=== PATIENT | male | born 1960 | race Two or more races ===

== ENCOUNTER 2016-09-22 13:46 | Observation (INO) | payer BC, OTHER ==
[~2016-09-22] VITALS: Ht 157.5 cm; Wt 94.1 kg
[2016-09-22] MEDS ORDERED: NS 500 ML IV ONE (14:15)
[2016-09-22] MEDS ORDERED: methylPREDNISolone INJ 125 MG/2 ML VIAL (J2930) IV ONE (14:15)
[2016-09-22] MEDS ORDERED: IPRATROPIUM 0.5MG/ALBUTEROL 2.5MG INH SOL UD 3ML (DUONEB)(J7620) NEB ONE (14:15)
[2016-09-22 14:18] LABS: VENOUS BASE EXCESS -4.5 (-2.0-2.0); VENOUS O2 SATURATION 94.4 % (60.0-80.0); VENOUS PARTIAL PRESSURE CO2 33.5 mmHg (38.0-50.0); VENOUS PARTIAL PRESSURE O2 81.9 mmHg (30.0-50.0); VENOUS STANDARD HCO3 20.7 MEQ/L; VENOUS TOTAL CO2 20.5 MEQ/L (24.0-28.0)
[2016-09-22 14:22] LABS: BASO % 0.1 % (0.0-1.0); EOS # 0.1 K/mm3 (0.0-0.50); EOS % 0.7 % (0.0-3.0); LARGE UNSTAINED CELL # 0.1 K/mm3 (0.0-0.4); LARGE UNSTAINED CELL % 0.6 % (0.0-4.0); LYMPH # 0.9 K/mm3 (1.5-4.5); LYMPH % 4.9 % (24.0-44.0); MEAN CORPUSCULAR HEMOGLOBIN 29.6 pg (27.0-33.0); MEAN CORPUSCULAR HGB CONC 32.6 g/dl (32.0-36.5); MEAN CORPUSCULAR VOLUME 90.8 fl (80.0-96.0); MONO # 0.4 K/mm3 (0.0-0.8); MONO % 2.1 % (0.0-5.0); NEUTROPHILS # 15.2 K/mm3 (1.8-7.7); NEUTROPHILS % 91.5 % (36.0-66.0); PLATELET COUNT, AUTOMATED 441 k/mm3 (150-450); RED CELL DISTRIBUTION WIDTH 12.2 % (11.5-14.5); WHITE BLOOD COUNT 16.6 K/mm3 (4.0-10.0)
[2016-09-22 14:40] LABS: ALBUMIN 4.2 GM/DL (3.2-5.2); ALBUMIN/GLOBULIN RATIO 0.91 (1.00-1.93); BILIRUBIN,DIRECT 0.1 MG/DL (0.0-0.2); BILIRUBIN,TOTAL 0.7 MG/DL (0.2-1.0); CALCIUM LEVEL 10.8 MG/DL (8.5-10.1); CREATININE FOR GFR 1.69 MG/DL (0.70-1.30); GLOMERULAR FILTRATION RATE 45.1 (>56); TOTAL PROTEIN 8.8 GM/DL (6.4-8.2)
--- NOTE | 2016-09-22 14:40 | REP ---
Chest one-view HISTORY: Dyspnea Comparison: None The lungs are clear. The heart is normal in size. The pulmonary vasculature is normal in appearance. Impression: No acute disease. Signed by Jeb Kaur MD 09/22/2016 02:31 P
[2016-09-22 14:46] LABS: POTASSIUM SERUM 5.3 MEQ/L (3.5-5.1)
[2016-09-22] MEDS ORDERED: INSULIN HUMAN REGULAR 100 UNITS in NS 99 ML IV SCH ×3 (14:55→17:21)
[2016-09-22] MEDS ORDERED: INSULIN IV RATE CHANGE DOCUMENTATION ML/HR XX SCH (15:00)
[2016-09-22] MEDS ORDERED: GUAISYP5 PO (15:14)
[2016-09-22] MEDS ORDERED: PROAAER10 INH (15:14)
[2016-09-22] MEDS ORDERED: PEPT262S PO (15:14)
--- NOTE | 2016-09-22 15:57 | REP ---
CT CHEST WITHOUT CONTRAST: HISTORY: Shortness of breath. The lungs are clear. There is no pleural effusion. Small lymph nodes less than 1 cm in size are present in the mediastinum. Atherosclerotic calcification is present in the thoracic aorta. The heart is normal in size. Degenerative change is present in the thoracic spine. A 6.4 cm cyst is present in the left kidney. IMPRESSION: 1. There is no infiltrate, pleural effusion or mass. 2. 6.4 cm left renal cyst. Signed by Jeb Kaur MD 09/22/2016 03:59 P
[2016-09-22] MEDS ORDERED: NS 1,000 ML IV ONE ×3 (16:15→17:45)
[2016-09-22] MEDS ORDERED: ACETAMINOPHEN TAB 650MG DOSE (2X325MG) PO PRN (17:30)
[2016-09-22] MEDS ORDERED: ONDANSETRON 4MG/2ML VIAL (J2405) IV PRN (17:30)
[2016-09-22] MEDS ORDERED: BISACODYL 5 MG TAB PO PRN (17:30)
[2016-09-22] MEDS ORDERED: IPRATROPIUM 0.5MG/ALBUTEROL 2.5MG INH SOL UD 3ML (DUONEB)(J7620) NEB PRN (17:45)
[2016-09-22] MEDS ORDERED: SODIUM CHLORIDE 0.9% 1000 ML IV ONE (17:45)
[2016-09-22 19:59] LABS: ANION GAP 10 MEQ/L (8-16); BLOOD UREA NITROGEN 34 MG/DL (7-18); CALCIUM LEVEL 9.8 MG/DL (8.5-10.1); CARBON DIOXIDE LEVEL 24 MEQ/L (21-32); CHLORIDE LEVEL 98 MEQ/L (98-107); CREATININE FOR GFR 1.56 MG/DL (0.70-1.30); GLOMERULAR FILTRATION RATE 49.4 (>56); POTASSIUM SERUM 4.5 MEQ/L (3.5-5.1); SODIUM LEVEL 132 MEQ/L (136-145)
[2016-09-22 20:02] LABS: GLUCOSE, FASTING 485 MG/DL (70-105)
[2016-09-22] MEDS: KCL 20MEQ in NS 1000ML 1,000 ML IV SCH (21:18)
[2016-09-22] MEDS: HEPARIN SOD (PORCINE) 5000 UNITS/ML VIAL SC SCH (21:18)
--- NOTE | 2016-09-22 21:40 | HPE ---
DATE OF ADMISSION: 09/22/2016 PRIMARY CARE PHYSICIAN: Patient was following with Dr. Springer; however, the patient has not seen Dr. Springer for the past 10 years. CHIEF COMPLAINT: Increase shortness of breath as well as not being able to tolerate by mouth and being fatigued and more tired and being thirsty for the past 2 weeks HISTORY OF THE PRESENT ILLNESS: Mr. Godoy is a 56-year-old male who came to the emergency room due to experiencing shortness of breath, as well as being thirsty and not being able to hold anything down. The patient expressed that he had been seen by Dr. Springer 10 years ago; however, the patient has not been seen by primary care for the past 10 years. 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 He works for 4 weeks in [facility] and came home for 1 week. The patient expressed that 2 weeks ago, he noticed that he is more thirsty than usual. The patient also expressed that he could not hold anything down; however, he tried to keep himself hydrated. He also noticed that his urination has increased. He said that he has not been diagnosed with diabetes; however, he has a strong family history of diabetes. The patient also expressed that he has been noticing having shortness of breath for past 2 weeks especially with ambulation. The patient has been smoking since age 23, about a pack a day. However, the patient has not been diagnosed with chronic obstructive pulmonary disease (COPD). Patient has random chronic cough however it has increased for the past 2 weeks with chest discomfort. He has been feeling hungry; however, patient expressed that about 30 minutes to 1 hour after eating, he started having nausea and vomiting. The patient denies diarrhea. The patient denies fevers, chills or night sweats. The patient also denies syncope or seizure-type activities. However, the patient expressed that he has been having lightheadedness and dizziness. The patient came today due to increase of shortness of breath as well as not being able to tolerate by mouth and being fatigued and more tired for the past 2 weeks. ALLERGIES: No known allergies. PAST MEDICAL HISTORY No known past medical history. PAST SURGICAL HISTORY: Patient had the back surgery on L4-L5 due to an accident. HOME MEDICATIONS: - ProAir HFA two puff inhaler four times a day as needed for shortness of breath - Pepto Bismol 30 mL by mouth as needed for diarrhea - guaifenesin DM 100-10, 10 mL by mouth as needed for cough SOCIAL HISTORY: The patient lives with his son. The patient works in [place] for 4 weeks and every 5th week the patient comes home for a visit. The patient smokes one pack a day since he was 23 years old. The patient drinks alcohol occasionally; however, the patient expressed that when he is in [place] he does not drink alcohol because he is not allowed to do that. The patient denies illicit drug use. The patient has one son who is healthy. The patient has traveled to many different countries, including [facility] and [place] [facility]. FAMILY HISTORY: The patient has four brothers and two sisters; however, the patient does not know about their health and he feels that they are healthy. The patient's father at age 89. The patient's mother has diabetes and she is 89 years old. REVIEW OF SYSTEMS: General: The patient denies fever, chills, night sweats, weight loss, weight gain. HEENT: The patient expressed that he has been having lightheadedness and dizziness with standing up from a sitting position for the past 2 weeks. However , the patient denies acute vision or hearing changes. The patient denies headache. The patient denies problem with chewing food or sinusitis. Neck: The patient denies lumps, bumps, or decreased range of motion of his neck. Heart: The patient denies chest pain, palpitations, racing or skipping heartbeat. Lungs: The patient has been having a cough, which has increased for the past 2 weeks. The patient sometimes experiences a productive cough, which has been increased. However, the patient expressed that it is a dry cough. The patient denies wheezing. Abdomen: The patient denies abdominal pain; however, the patient expressed that he has been having nausea and vomiting about 30 minutes to 1 hour after eating or drinking food or fluid. The patient denies diarrhea, constipation, melena, hematochezia or hemoptysis. Neurologic: The patient denies a history of transient ischemic attack (TIA), cerebrovascular accident or seizure-type activity. PHYSICAL EXAMINATION: Vital signs: Temperature 99.5, pulse 127, respiratory rate 18, blood pressure 173/108, pulse oximetry 94% on room air. General Appearance: The patient was lying in bed in no acute distress. The patient was awake, alert and oriented to time, place and person. HEENT: Normocephalic, atraumatic. Pupils are equal and reactive to light. Oral mucosa is moist. Neck: Soft, supple. No lymphadenopathy. No thyromegaly. No jugular venous distention (JVD). Heart: Regular rate and rhythm. Normal S1, S2. No murmur, rub or gallop was noted. Lungs: The patient has scattered rhonchi as well as fine exhale wheezing. Abdomen: Soft, nontender. Positive bowel sounds in all quadrants. Extremities: No lower extremity edema, +2 pulses in both lower extremities. The patient has decreased range of motion of his lower extremities. The patient expressed that this is secondary to his weakness. Neurologic: Cranial nerves II-XII was intact. No focal deficiencies. LABORATORY DATA: Sodium 128, potassium 5.3, chloride 89, carbon dioxide 21, anion gap 18, BUN 89, creatinine 169, glomerular filtration rate 45.1, fasting glucose 913, calcium 10.8, total bilirubin 0.7 and direct bilirubin 0.1. AST 18, ALT 68, alkaline phosphatase 147, total protein 8.8, albumin 4.2. White blood cells 16.6 , red blood cells 5.77, hemoglobin 17.1, hematocrit 52.4, MCV 90.8, MCH 29.6, MCHC 32.6, RDW 12.2, platelet count 441, neutrophil percentage 91.5, lymphocyte percentage 4.9, monocyte percentage 2.1, eosinophil percentage 0.7, basophil percentage 0.1, leukocyte percentage 0.2. Blood culture is pending. Chest x-ray shows no acute disease. CT of the chest indicated no infiltrate, pleural effusion or mass. ASSESSMENT AND PLAN: 1. Diabetic ketoacidosis. At this time, we have made the patient nothing by mouth. We have started the patient on intravenous (IV) fluid with potassium as well as insulin drip. Also, there is a possibility of infection. We have ordered blood culture as well as urine culture and urinalysis (UA), result is pending at this time. Also, we will check basic metabolic panel (BMP) every 4 hours for following the gap. However, at this time, the patient's anion gap is open. We will continue monitoring the patient. The patient will be admitted to the intensive care unit (ICU). 2. Hyponatremia. This is possibly hypovolemic hyponatremia secondary to diabetic ketoacidosis as well as abnormal renal function. At this point, the patient is on IV fluid. We will continue monitoring the patient's sodium level. 3. Hyperkalemia. This is secondary to DKA. The patient has been started on an insulin drip. However, we also will start the patient on IV fluid with sodium. We will continue monitoring the patient's BMP every 4 hours. 4. Diabetes. The patient has not been diagnosed with diabetes. We have ordered hemoglobin A1c, which indicated high level (11.7). At this time, the patient is nothing by mouth (n.p.o.). The patient is on an insulin drip. 5. Leukocytosis. The patient has elevated white blood cells. This is possibly secondary to infection versus DKA. We have ordered blood culture as well as urine culture and UA. Result is pending at this time. We have not started any antibiotic at this time due to unknown etiology. We will continue monitoring the patient for any abnormal symptoms. 6. Abnormal renal function. We do not have the baseline for the renal function. I am assuming this is acute kidney injury secondary to dehydration caused by DKA. The patient is on IV fluid. We will revaluate his renal function tomorrow. 7. Deep vein thrombosis (DVT) prophylaxis. The patient is on heparin 5000 units every 8 hours subcutaneously 8. Dyspnea. Due to abnormal renal function, CT angio cannot be perform to rule out pulmonary embolism (PE) . However, we have ordered a V/Q scan which we will perform tomorrow. Patient on breathing treatment. 9. Tobacco abuse. The patient is on nicotine patch. MTDD
[2016-09-22] MEDS: INSULIN IV RATE CHANGE DOCUMENTATION ML/HR XX SCH (22:00)
[2016-09-22] MEDS: IPRATROPIUM 0.5MG/ALBUTEROL 2.5MG INH SOL UD 3ML (DUONEB)(J7620) NEB SCH (22:27)
[2016-09-22 23:25] LABS: ANION GAP 8 MEQ/L (8-16); BLOOD UREA NITROGEN 27 MG/DL (7-18); CALCIUM LEVEL 8.7 MG/DL (8.5-10.1); CARBON DIOXIDE LEVEL 24 MEQ/L (21-32); CHLORIDE LEVEL 103 MEQ/L (98-107); GLOMERULAR FILTRATION RATE > 60.0 (>56); GLUCOSE, FASTING 390 MG/DL (70-105); POTASSIUM SERUM 4.2 MEQ/L (3.5-5.1); SODIUM LEVEL 135 MEQ/L (136-145)
[2016-09-23] VITALS (7 sets, daily range): BP systolic 127–179; BP diastolic 81–100
[2016-09-23] MEDS: IPRATROPIUM 0.5MG/ALBUTEROL 2.5MG INH SOL UD 3ML (DUONEB)(J7620) NEB SCH ×4 (02:26→21:21)
[2016-09-23 02:46] LABS: BASO % 0.1 % (0.0-1.0); EOS # 0.1 K/mm3 (0.0-0.50); EOS % 0.8 % (0.0-3.0); LARGE UNSTAINED CELL # 0.1 K/mm3 (0.0-0.4); LARGE UNSTAINED CELL % 0.6 % (0.0-4.0); LYMPH # 1.4 K/mm3 (1.5-4.5); LYMPH % 9.3 % (24.0-44.0); MEAN CORPUSCULAR HEMOGLOBIN 29.8 pg (27.0-33.0); MEAN CORPUSCULAR HGB CONC 33.7 g/dl (32.0-36.5); MEAN CORPUSCULAR VOLUME 88.4 fl (80.0-96.0); MONO # 0.3 K/mm3 (0.0-0.8); MONO % 2.3 % (0.0-5.0); NEUTROPHILS # 12.3 K/mm3 (1.8-7.7); NEUTROPHILS % 86.9 % (36.0-66.0); PLATELET COUNT, AUTOMATED 347 k/mm3 (150-450); RED CELL DISTRIBUTION WIDTH 12.3 % (11.5-14.5); WHITE BLOOD COUNT 14.2 K/mm3 (4.0-10.0)
[2016-09-23 03:14] LABS: ALBUMIN 3.3 GM/DL (3.2-5.2); ALBUMIN/GLOBULIN RATIO 0.79 (1.00-1.93); ALKALINE PHOSPHATASE 106 U/L (45-117); ALT/SGPT 48 U/L (12-78); ANION GAP 9 MEQ/L (8-16); AST/SGOT 14 U/L (15-37); BILIRUBIN,TOTAL 0.4 MG/DL (0.2-1.0); BLOOD UREA NITROGEN 24 MG/DL (7-18); CALCIUM LEVEL 8.5 MG/DL (8.5-10.1); CARBON DIOXIDE LEVEL 24 MEQ/L (21-32); CHLORIDE LEVEL 106 MEQ/L (98-107); CREATININE FOR GFR 1.07 MG/DL (0.70-1.30); GLOMERULAR FILTRATION RATE > 60.0 (>56); GLUCOSE, FASTING 340 MG/DL (70-105); MAGNESIUM LEVEL 2.4 MG/DL (1.8-2.4); POTASSIUM SERUM 4.2 MEQ/L (3.5-5.1); SODIUM LEVEL 139 MEQ/L (136-145); TOTAL PROTEIN 7.5 GM/DL (6.4-8.2)
[2016-09-23] MEDS: INSULIN IV RATE CHANGE DOCUMENTATION ML/HR XX SCH (06:05)
[2016-09-23] MEDS: KCL 20MEQ in NS 1000ML 1,000 ML IV SCH (06:09)
[2016-09-23] MEDS: HEPARIN SOD (PORCINE) 5000 UNITS/ML VIAL SC SCH ×3 (06:09→21:07)
[2016-09-23] MEDS ORDERED: GLUCOSE 4 GM CHEW TABLET PO PRN (07:00)
[2016-09-23] MEDS ORDERED: GLUCAGON FOR INJ 1 MG VIAL (J1610) SC PRN (07:00)
[2016-09-23] MEDS ORDERED: DEXTROSE 50% 50 ML SYRINGE IV PRN (07:00)
[2016-09-23] MEDS: HumaLOG INSULIN (NovoLOG) PER UNIT SC SCH ×4 (07:30→21:05)
[2016-09-23 07:52] LABS: ANION GAP 9 MEQ/L (8-16); BLOOD UREA NITROGEN 23 MG/DL (7-18); CALCIUM LEVEL 8.6 MG/DL (8.5-10.1); CARBON DIOXIDE LEVEL 24 MEQ/L (21-32); CHLORIDE LEVEL 108 MEQ/L (98-107); CREATININE FOR GFR 0.92 MG/DL (0.70-1.30); GLOMERULAR FILTRATION RATE > 60.0 (>56); GLUCOSE, FASTING 313 MG/DL (70-105); POTASSIUM SERUM 4.4 MEQ/L (3.5-5.1); SODIUM LEVEL 141 MEQ/L (136-145)
[2016-09-23] MEDS ORDERED: LEVEMIR (INSULIN DETEMIR) 1 UNITS/0.01ML SC SCH (09:00)
--- NOTE | 2016-09-23 11:21 | IPNPDOC ---
Subjective Date Seen The patient was seen on 09/23/16. Subjective Chief Complaint/HPI The patient is a 56-year-old male admitted with a reason for visit of Dka ( Diabetic Ketoacidoses). Events since last encounter feeling better, no vomiting or dry heaves this am , feeling hungry. no fever or chills, no chest pain or sob , no abdominal pain or diarrhea. Objective Physical Examination General Exam: Positive: Alert, Cooperative, No Acute Distress Eye Exam: Positive: PERRLA, Conjunctiva & lids normal, EOMI, Negative: Sclera icteric ENT Exam: Positive: Atraumatic, Mucous membr. moist/pink, Pharynx Normal Chest Exam: Positive: Rhonchi, Wheezing Heart Exam: Positive: Rate Normal, Regular Rhythm, Normal S1, Normal S2 Telemetry: Positive: No significant arrhythmia Abdomen Exam: Positive: Normal bowel sounds, Soft, Negative: Tenderness, Hepatospenomegaly Extremity Exam: Positive: Normal pulses, Negative: Clubbing, Cyanosis, Edema Skin Exam: Positive: Nl turgor and temperature, Negative: Rash, Breakdown Assessment /Plan Problems (1) Diabetes Status: Acute Problem Text: presented with DKA. now gap closed. Bicarb improved. will transition to sub cutaneous insulin. once eating orally will stop ivf. (2) Acute kidney failure Status: Resolved Problem Text: due to hyperglycemia with ostotic diuresis and dehydration. (3) Depression Status: Chronic (4) Alcohol use Status: Chronic (5) Chronic bronchitis Status: Chronic Problem Text: smoker . will continue with nebs. discussed with patient about smoking cessation . will try on his own offered educational material about it. Plan/VTE VTE Prophylaxis Ordered?: Yes VS, I&O, 24H, Fishbone Vital Signs/I&O Vital Signs Date Time Temp Pulse Resp B/P (MAP) Pulse Ox O2 Delivery O2 Flow Rate FiO2 09/23/16 04:00 98.3 90 20 179/100 (126) 94 Room Air 3.0 I&O- Last 24 Hours up to 6 AM 09/23/16 06:00 Intake Total 3104 ml Output Total 1225 ml Balance 1879 ml Laboratory Data 24H LABS Laboratory Tests 2 09/22/16 14:08: White Blood Count 16.6H, Red Blood Count 5.77, Hemoglobin 17.1, Hematocrit 52.4H , Mean Corpuscular Volume 90.8, Mean Corpuscular Hemoglobin 29.6, Mean Corpuscular Hemoglobin Concent 32.6, Red Cell Distribution Width 12.2, Platelet Count 441, Neutrophils (%) (Auto) 91.5H, Lymphocytes (%) (Auto) 4.9L, Monocytes (%) (Auto) 2.1, Eosinophils (%) (Auto) 0.7, Basophils (%) (Auto) 0.1, Neutrophils # (Auto) 15.2H, Lymphocytes # (Auto) 0.9L, Monocytes # (Auto) 0.4, Eosinophils # (Auto) 0.1, Basophils # (Auto) 0.0, Large Unclassified Cells % 0.6 , Large Unclassified Cells # 0.1, Blood Gas Bicarbonate Standard 20.7, Venous Blood pH 7.382, Venous Blood Partial Pressure CO2 33.5L, Venous Blood Partial Pressure O2 81.9H, Venous Blood Total Carbon Dioxide 20.5L, Venous Blood HCO3 19.5L, Venous Blood Oxygen Saturation 94.4H, Venous Blood Base Excess -4.5L, Anion Gap 18H, Glomerular Filtration Rate 45.1L, Calcium Level 10.8H, Aspartate Amino Transf (AST/SGOT) 18, Alanine Aminotransferase (ALT/SGPT) 68, Alkaline Phosphatase 147H, Total Bilirubin 0.7, Direct Bilirubin 0.1, B-Type Natriuretic Peptide < 5.0, Total Protein 8.8H, Albumin 4.2, Albumin/Globulin Ratio 0.91L 09/22/16 18:20: Bedside Glucose (Misc Panel) 502*H 09/22/16 18:56: Anion Gap 10, Glomerular Filtration Rate 49.4L, Calcium Level 9.8, Estimated Mean Plasma Glucose 289H, Hemoglobin A1c 11.7H, Blood Urea Nitrogen 34H, Creatinine 1.56H, Sodium Level 132L, Potassium Level 4.5, Chloride Level 98, Carbon Dioxide Level 24, Total Creatine Kinase 323H, Creatine Kinase MB 3.3, Creatine Kinase MB Relative Index 1.02, Troponin I < 0.02 09/22/16 19:37: Bedside Glucose (Misc Panel) 466H 09/22/16 20:36: Bedside Glucose (Misc Panel) 409H 09/22/16 20:55: Urine Appearance CLEAR, Urine Color YELLOW, Urine pH 5.0, Urine Specific [place] 1.029, Urine Protein 2+H, Urine Glucose (UA) 3+H, Urine Ketones TRACEH, Urine Urobilinogen 0.2, Urine Bilirubin NEGATIVE, Urine Leukocyte Esterase NEGATIVE, Urine Blood NEGATIVE, Urine Nitrite NEGATIVE, Urine WBC (Auto) 2, Urine RBC (Auto) 1, Urine Hyaline Casts (Auto) 0, Urine Bacteria (Auto) NEGATIVE , Urine Squamous Epithelial Cells 0, Urine Sperm (Auto) 09/22/16 20:56: Bedside Glucose (Misc Panel) 402H 09/22/16 21:58: Bedside Glucose (Misc Panel) 332H 09/22/16 22:51: Anion Gap 8, Glomerular Filtration Rate > 60.0, Blood Urea Nitrogen 27H, Creatinine 1.20, Sodium Level 135L, Potassium Level 4.2, Chloride Level 103, Carbon Dioxide Level 24, Calcium Level 8.7, Total Creatine Kinase 308, Creatine Kinase MB 2.9, Creatine Kinase MB Relative Index 0.94, Troponin I < 0.02 09/22/16 23:01: Bedside Glucose (Misc Panel) 361H 09/23/16 00:04: Bedside Glucose (Misc Panel) 353H 09/23/16 01:03: Bedside Glucose (Misc Panel) 372H 09/23/16 02:32: Bedside Glucose (Misc Panel) 323H 09/23/16 02:39: Anion Gap 9, Glomerular Filtration Rate > 60.0, Blood Urea Nitrogen 24H, Creatinine 1.07, Sodium Level 139, Potassium Level 4.2, Chloride Level 106, Carbon Dioxide Level 24, Calcium Level 8.5, Aspartate Amino Transf (AST/SGOT) 14L, Alanine Aminotransferase (ALT/SGPT) 48, Total Creatine Kinase 312H, Alkaline Phosphatase 106, Total Bilirubin 0.4, Total Protein 7.5, Albumin 3.3#, Magnesium Level 2.4, Creatine Kinase MB 2.8, Creatine Kinase MB Relative Index 0.89, Troponin I < 0.02, Albumin/Globulin Ratio 0.79L 09/23/16 02:40: White Blood Count 14.2H, Red Blood Count 5.07, Hemoglobin 15.1#, Hematocrit 44.8 , Mean Corpuscular Volume 88.4, Mean Corpuscular Hemoglobin 29.8, Mean Corpuscular Hemoglobin Concent 33.7, Red Cell Distribution Width 12.3, Platelet Count 347, Neutrophils (%) (Auto) 86.9H, Lymphocytes (%) (Auto) 9.3L, Monocytes (%) (Auto) 2.3, Eosinophils (%) (Auto) 0.8, Basophils (%) (Auto) 0.1, Neutrophils # (Auto) 12.3H, Lymphocytes # (Auto) 1.4L, Monocytes # (Auto) 0.3, Eosinophils # (Auto) 0.1, Basophils # (Auto) 0.0, Large Unclassified Cells % 0.6 , Large Unclassified Cells # 0.1 09/23/16 03:08: Bedside Glucose (Misc Panel) 374H 09/23/16 04:04: Bedside Glucose (Misc Panel) 337H 09/23/16 05:09: Bedside Glucose (Misc Panel) 304H 09/23/16 06:01: Bedside Glucose (Misc Panel) 292H CBC/BMP Laboratory Tests 09/22/16 14:08 Red Blood Count 5.77, Mean Corpuscular Volume 90.8, Mean Corpuscular Hemoglobin 29.6, Mean Corpuscular Hemoglobin Concent 32.6, Red Cell Distribution Width 12.2 , Neutrophils (%) (Auto) 91.5 H, Lymphocytes (%) (Auto) 4.9 L, Monocytes (%) ( Auto) 2.1, Eosinophils (%) (Auto) 0.7, Basophils (%) (Auto) 0.1, Neutrophils # ( Auto) 15.2 H, Lymphocytes # (Auto) 0.9 L, Monocytes # (Auto) 0.4, Eosinophils # (Auto) 0.1, Basophils # (Auto) 0.0 09/22/16 18:56 Calcium Level 9.8, Total Creatine Kinase 323 H 09/22/16 22:51 Calcium Level 8.7, Total Creatine Kinase 308 09/23/16 02:39 Calcium Level 8.5, Total Creatine Kinase 312 H, Aspartate Amino Transf (AST/SGOT ) 14 L, Alanine Aminotransferase (ALT/SGPT) 48, Alkaline Phosphatase 106, Total Bilirubin 0.4, Total Protein 7.5, Albumin 3.3 # 09/23/16 02:40 Red Blood Count 5.07, Mean Corpuscular Volume 88.4, Mean Corpuscular Hemoglobin 29.8, Mean Corpuscular Hemoglobin Concent 33.7, Red Cell Distribution Width 12.3 , Neutrophils (%) (Auto) 86.9 H, Lymphocytes (%) (Auto) 9.3 L, Monocytes (%) ( Auto) 2.3, Eosinophils (%) (Auto) 0.8, Basophils (%) (Auto) 0.1, Neutrophils # ( Auto) 12.3 H, Lymphocytes # (Auto) 1.4 L, Monocytes # (Auto) 0.3, Eosinophils # (Auto) 0.1, Basophils # (Auto) 0.0 Microbiology Microbiology 09/22/16 Blood Culture, Received Pending 09/22/16 Blood Culture, Received Pending 09/22/16 Urine Culture, Received Pending MICHELET WIGGINS MD Sep 23, 2016 07:08
[2016-09-23 11:48] LABS: ANION GAP 10 MEQ/L (8-16); BLOOD UREA NITROGEN 26 MG/DL (7-18); CALCIUM LEVEL 8.4 MG/DL (8.5-10.1); CARBON DIOXIDE LEVEL 22 MEQ/L (21-32); CHLORIDE LEVEL 103 MEQ/L (98-107); CREATININE FOR GFR 0.95 MG/DL (0.70-1.30); GLOMERULAR FILTRATION RATE > 60.0 (>56); POTASSIUM SERUM 4.5 MEQ/L (3.5-5.1); SODIUM LEVEL 135 MEQ/L (136-145)
[2016-09-23 11:55] LABS: GLUCOSE, FASTING 486 MG/DL (70-105)
[2016-09-23] MEDS ORDERED: LEVEMIR (INSULIN DETEMIR) 1 UNITS/0.01ML SC ONE (13:00)
--- NOTE | 2016-09-23 15:12 | REP ---
VENTILATION-PERFUSION LUNG SCAN: HISTORY: Possible pulmonary embolism. Comparison is made with yesterday's portable chest x-ray and chest CT study done without contrast. TECHNIQUE: 1.0 mCi technetium 99m DTPA aerosol is utilized for the ventilation study and is followed by a of 5.5 mCi dose of technetium-99m MAA for the perfusion examination. Eight planar images are acquired for each portion of the study. SCINTIGRAPHIC FINDINGS: There is homogeneous distribution of tracer on the perfusion study bilaterally to the lungs. No perfusion defect is seen. There is some central bronchial deposition of tracer on the ventilation study. IMPRESSION: Negative ventilation perfusion lung scan. No evidence of pulmonary embolus. Signed by Hu Burns MD 09/23/2016 03:47 P
--- NOTE | 2016-09-23 18:20 | ECGEPIP ---
Stationary ECG Study [facility] - ED Test Date: 2016-09-22 Pat Name: JOAQUÍN MORALES Department: Room: - Gender: M Laser Beam Cutter: JT : 1960 Requested By: RIGO Crowe Order Number: [id number] Reading MD: Alexandra Ghosh Measurements Intervals [place] Rate: 130 P: 60 VA: 161 QRS: -8 QRSD: 74 T: 22 QT: 275 QTc: 405 Interpretive Statements SINUS TACHYCARDIA ABNORMAL RHYTHM ECG ?INFERIOR INFARCT PRWP NSTTW ABNORMALITY NO PRIOR FOR COMPARISON Electronically Signed On 09-23-2016 18:20:20 EDT by Alexandra Ghosh
[2016-09-23] MEDS: LEVEMIR (INSULIN DETEMIR) 1 UNITS/0.01ML SC SCH (21:06)
[2016-09-24] VITALS: BP 122/62
[2016-09-24 01:18] LABS: ANION GAP 6 MEQ/L (8-16); BLOOD UREA NITROGEN 24 MG/DL (7-18); CALCIUM LEVEL 8.3 MG/DL (8.5-10.1); CARBON DIOXIDE LEVEL 25 MEQ/L (21-32); CHLORIDE LEVEL 104 MEQ/L (98-107); CREATININE FOR GFR 0.95 MG/DL (0.70-1.30); GLOMERULAR FILTRATION RATE > 60.0 (>56); GLUCOSE, FASTING 343 MG/DL (70-105); SODIUM LEVEL 135 MEQ/L (136-145)
[2016-09-24 01:28] LABS: PHOSPHORUS LEVEL 2.2 MG/DL (2.5-4.9)
[2016-09-24] MEDS ORDERED: SODIUM CHLORIDE 0.9% 1000 ML IV ONE (01:30)
[2016-09-24] MEDS ORDERED: K-PHOS NEUTRAL 250MG TABLET (SOD.PHOSPHATE/POT.PHOSPHATE) PO ONE (01:30)
[2016-09-24] MEDS: IPRATROPIUM 0.5MG/ALBUTEROL 2.5MG INH SOL UD 3ML (DUONEB)(J7620) NEB SCH ×4 (02:00→20:13)
[2016-09-24] MEDS: HEPARIN SOD (PORCINE) 5000 UNITS/ML VIAL SC SCH ×3 (06:35→21:03)
[2016-09-24 07:17] LABS: BASO % 0.3 % (0.0-1.0); EOS % 0.6 % (0.0-3.0); LARGE UNSTAINED CELL # 0.1 K/mm3 (0.0-0.4); LARGE UNSTAINED CELL % 1.4 % (0.0-4.0); LYMPH # 2.3 K/mm3 (1.5-4.5); LYMPH % 25.4 % (24.0-44.0); MEAN CORPUSCULAR HEMOGLOBIN 29.9 pg (27.0-33.0); MEAN CORPUSCULAR VOLUME 90.5 fl (80.0-96.0); MONO # 0.3 K/mm3 (0.0-0.8); MONO % 3.7 % (0.0-5.0); NEUTROPHILS # 5.9 K/mm3 (1.8-7.7); NEUTROPHILS % 68.6 % (36.0-66.0); PLATELET COUNT, AUTOMATED 302 k/mm3 (150-450); RED CELL DISTRIBUTION WIDTH 12.3 % (11.5-14.5); WHITE BLOOD COUNT 8.6 K/mm3 (4.0-10.0)
[2016-09-24 07:34] LABS: MAGNESIUM LEVEL 2.4 MG/DL (1.8-2.4); PHOSPHORUS LEVEL 2.5 MG/DL (2.5-4.9)
[2016-09-24] MEDS: HumaLOG INSULIN (NovoLOG) PER UNIT SC SCH ×4 (07:45→21:04)
[2016-09-24 08:00] VITALS: BP 161/85
[2016-09-24] MEDS: LEVEMIR (INSULIN DETEMIR) 1 UNITS/0.01ML SC SCH (09:14)
[2016-09-24] MEDS: NYSTATIN 500,000 U/5 ML SUSP UDC SS SCH ×4 (09:20→23:01)
[2016-09-24 09:24] LABS: ANION GAP 6 MEQ/L (8-16); BLOOD UREA NITROGEN 19 MG/DL (7-18); CALCIUM LEVEL 8.3 MG/DL (8.5-10.1); CARBON DIOXIDE LEVEL 26 MEQ/L (21-32); CHLORIDE LEVEL 107 MEQ/L (98-107); CREATININE FOR GFR 0.81 MG/DL (0.70-1.30); GLOMERULAR FILTRATION RATE > 60.0 (>56); GLUCOSE, FASTING 241 MG/DL (70-105); SODIUM LEVEL 139 MEQ/L (136-145)
[2016-09-24] MEDS ORDERED: LEVEMIR (INSULIN DETEMIR) 1 UNITS/0.01ML SC ONE (11:45)
--- NOTE | 2016-09-24 11:48 | IPNPDOC ---
Subjective Date Seen The patient was seen on 09/24/16. Subjective Chief Complaint/HPI The patient is a 56-year-old male admitted with a reason for visit of Dka ( Diabetic Ketoacidoses). Events since last encounter continues to complain of SOB on exertion , also woke up at night with sudden sob , no fever or chills, no chest pain . has some cough . complains of soreness in the mouth and sore throat. Objective Physical Examination General Exam: Positive: Alert, Cooperative, No Acute Distress Eye Exam: Positive: PERRLA, Conjunctiva & lids normal, EOMI, Negative: Sclera icteric ENT Exam: Positive: Atraumatic, Mucous membr. moist/pink, Pharynx Normal Chest Exam: Positive: Rhonchi, Wheezing Heart Exam: Positive: Rate Normal, Regular Rhythm, Normal S1, Normal S2 Telemetry: Positive: No significant arrhythmia Abdomen Exam: Positive: Normal bowel sounds, Soft, Negative: Tenderness, Hepatospenomegaly Extremity Exam: Positive: Normal pulses, Negative: Clubbing, Cyanosis, Edema Skin Exam: Positive: Nl turgor and temperature, Negative: Rash, Breakdown Assessment /Plan Problems (1) Diabetes Status: Acute Problem Text: presented with DKA. will continue levemir insulin , will start metformin on discharge. (2) Acute kidney failure Status: Resolved Problem Text: due to hyperglycemia with osmotic diuresis and dehydration. (3) Depression Status: Chronic (4) Alcohol use Status: Chronic (5) Chronic bronchitis Status: Chronic Problem Text: smoker . will continue with nebs. discussed with patient about smoking cessation . will try on his own offered educational material about it. (6) Hypertension Status: Acute Problem Text: new diagnosis will start on lisinopril (7) Obesity (BMI 30-39.9) Status: Chronic Problem Text: may have LUCRECIA has typical body habitus and says does not sleep well at night , frequently wakes up. will check nocturnal pulse oximetry. Plan/VTE VTE Prophylaxis Ordered?: Yes VS, I&O, 24H, Fishbone Vital Signs/I&O Vital Signs Date Time Temp Pulse Resp B/P (MAP) Pulse Ox O2 Delivery O2 Flow Rate FiO2 09/24/16 08:00 98.1 83 22 161/85 (110) 95 Nasal Cannula 3.0 I&O- Last 24 Hours up to 6 AM 09/24/16 06:00 Intake Total 4557 ml Output Total 3245 ml Balance 1312 ml Laboratory Data 24H LABS Laboratory Tests 2 09/23/16 12:51: Bedside Glucose (Misc Panel) 458H 09/23/16 16:57: Bedside Glucose (Misc Panel) 344H 09/23/16 20:39: Bedside Glucose (Misc Panel) 387H 09/24/16 00:20: Bedside Glucose (Misc Panel) 365H 09/24/16 00:49: Anion Gap 6L, Glomerular Filtration Rate > 60.0, Blood Urea Nitrogen 24H, Creatinine 0.95, Sodium Level 135L, Potassium Level 4.0, Chloride Level 104, Carbon Dioxide Level 25, Calcium Level 8.3L, Phosphorus Level 2.2L 09/24/16 06:55: Anion Gap 6L, Glomerular Filtration Rate > 60.0, Blood Urea Nitrogen 19H, Creatinine 0.81, Sodium Level 139, Potassium Level 4.0, Chloride Level 107, Carbon Dioxide Level 26, Calcium Level 8.3L, Phosphorus Level 2.5, White Blood Count 8.6, Red Blood Count 4.61, Hemoglobin 13.8L, Hematocrit 41.7L, Mean Corpuscular Volume 90.5, Mean Corpuscular Hemoglobin 29.9, Mean Corpuscular Hemoglobin Concent 33.0, Red Cell Distribution Width 12.3, Platelet Count 302, Neutrophils (%) (Auto) 68.6H, Lymphocytes (%) (Auto) 25.4, Monocytes (%) (Auto) 3.7, Eosinophils (%) (Auto) 0.6, Basophils (%) (Auto) 0.3, Neutrophils # (Auto) 5.9, Lymphocytes # (Auto) 2.3, Monocytes # (Auto) 0.3, Eosinophils # (Auto) 0.0 , Basophils # (Auto) 0.0, Large Unclassified Cells % 1.4, Large Unclassified Cells # 0.1, Magnesium Level 2.4 CBC/BMP Laboratory Tests 09/24/16 00:49 Calcium Level 8.3 L 09/24/16 06:55 Calcium Level 8.3 L, Red Blood Count 4.61, Mean Corpuscular Volume 90.5, Mean Corpuscular Hemoglobin 29.9, Mean Corpuscular Hemoglobin Concent 33.0, Red Cell Distribution Width 12.3, Neutrophils (%) (Auto) 68.6 H, Lymphocytes (%) (Auto) 25.4, Monocytes (%) (Auto) 3.7, Eosinophils (%) (Auto) 0.6, Basophils (%) (Auto ) 0.3, Neutrophils # (Auto) 5.9, Lymphocytes # (Auto) 2.3, Monocytes # (Auto) 0.3, Eosinophils # (Auto) 0.0, Basophils # (Auto) 0.0 Microbiology Microbiology 09/22/16 Blood Culture - Preliminary, Resulted No growth after 24 hours . All specim... 09/22/16 Blood Culture - Preliminary, Resulted No growth after 24 hours . All specim... 09/22/16 Urine Culture - Final, Complete MICHELET WIGGINS MD Sep 24, 2016 11:48
[2016-09-24] MEDS: LISINOPRIL 10 MG TAB PO SCH (13:24)
[2016-09-24] MEDS: TIOTROPIUM INHALER/CAPSULE (SPIRIVA) INH SCH (14:49)
[2016-09-24 16:00] VITALS: BP 168/77
[2016-09-24 20:00] VITALS: BP 131/63
[2016-09-24] MEDS ORDERED: LEVEMIR (INSULIN DETEMIR) 1 UNITS/0.01ML SC SCH (21:00)
[2016-09-25] VITALS: BP 139/78
[2016-09-25] MEDS: IPRATROPIUM 0.5MG/ALBUTEROL 2.5MG INH SOL UD 3ML (DUONEB)(J7620) NEB SCH ×2 (02:00→07:26)
[2016-09-25] MEDS: NYSTATIN 500,000 U/5 ML SUSP UDC SS SCH (06:00)
[2016-09-25] MEDS: HEPARIN SOD (PORCINE) 5000 UNITS/ML VIAL SC SCH (06:10)
[2016-09-25] MEDS: TIOTROPIUM INHALER/CAPSULE (SPIRIVA) INH SCH (07:26)
[2016-09-25 08:00] VITALS: BP 130/77
[2016-09-25 08:10] VITALS: BP 139/78
[2016-09-25] MEDS: LISINOPRIL 10 MG TAB PO SCH (08:10)
[2016-09-25] MEDS: HumaLOG INSULIN (NovoLOG) PER UNIT SC SCH (08:12)
[2016-09-25] MEDS ORDERED: BD L33MI XX (08:27)
[2016-09-25] MEDS ORDERED: LISI10TA4 PO (08:27)
[2016-09-25] MEDS ORDERED: TIOT18INH INH (08:27)
[2016-09-25] MEDS ORDERED: BD P31MI2 XX (08:27)
[2016-09-25] MEDS ORDERED: LEVE1INJ5 SC (08:27)
[2016-09-25] MEDS ORDERED: BAYEKIT XX (08:27)
[2016-09-25] MEDS ORDERED: ALCOPAD22 XX (08:27)
[2016-09-25] MEDS ORDERED: CONTMIS XX (08:27)
[2016-09-25] MEDS ORDERED: METF500T13 PO (08:27)
[2016-09-25] MEDS ORDERED: LEVEMIR (INSULIN DETEMIR) 1 UNITS/0.01ML SC SCH (09:00)
--- NOTE | 2016-09-26 18:21 | NOCOX ---
DATE OF PROCEDURE: 09/24/2016 OVERNIGHT OXIMETRY INTERPRETATION: Recording nocturnal oximetry was performed on room air. A total of 6 hours and 58 minutes of data was reviewed. Mean oxygen saturation for the study was 91% with a minimum recorded value of 84%. He spent 15.7% of the night with saturations less than 90th percentile. His longest continuous stretch less than or equal to 88% was 1 minute and 6 seconds. Total time with saturations less than 90% percentile was 1 hour and 6 minutes. There were periods of significant fluctuation of the SpO2 waveform suggestive of sleep disordered breathing. IMPRESSION: 1. Nocturnal hypoxemia, though the longest continuous time period less than or equal to 88% was 1 minute and 6 seconds. 2. Fluctuations to the SpO2 waveform suggestive of sleep disordered breathing. Clinical correlation will be necessary.
--- NOTE | 2016-09-26 20:11 | ECHO ---
DATE OF PROCEDURE: 09/24/2016 DATE OF : 1960 AGE: 56 REFERRING PROVIDER: Dr. Maritza Lewis PATIENT LOCATION: Room 4112. REASON FOR THE ECHOCARDIOGRAM: Shortness of breath. 2D MEASUREMENTS: IVS: 1.2 cm LV: 4.5 cm LVPW: 1.2 cm LA: 3.7 cm Aorta: 2.8 cm IVC: 1.4 cm DOPPLER MEASUREMENTS: Peak velocity across the aortic valve: 1.4 m/s Peak velocity across the LVOT: 0.85 m/s Mitral E: 0.63, Mitral A: 0.71 with a ratio of 0.9 Maximum tricuspid valve velocity: 1.8 m/s 2D COMMENTS: 1. Normal left ventricular size, wall thickness and normal global left ventricular systolic function. The estimated global left ventricular systolic ejection fraction is 60-65%. 2. Normal left atrium. Normal right atrium and right ventricle. 3. The atrial septum appeared to be normal without evidence of defect or shunt. 4. Normal aortic root. 5. No pericardial effusion seen. 6. The aortic valve, mitral valve, tricuspid valve, and pulmonic valve appeared to be normal. The proximal pulmonary artery branches also appeared to be normal. 7. The inferior vena cava was normal in size at 1.4 cm, central venous pressure is most likely normal. . DOPPLER: It detects trace tricuspid regurgitation. The calculated pulmonary artery systolic pressure was normal. IMPRESSION: 1. Normal global left ventricular systolic function. There are some features of left ventricular diastolic dysfunction, grade 1. 2. Trace tricuspid regurgitation with a normal calculated pulmonary artery systolic pressure. MTDD
--- NOTE | 2016-09-27 02:45 | DSES ---
DATE OF ADMISSION: 09/22/2016 DATE OF DISCHARGE: 09/25/2016 PRIMARY CARE PROVIDER: New primary care provider set up with Dr. Mendez. DISCHARGE DIAGNOSES: 1. New onset diabetes, presented with possible diabetic ketoacidosis (DKA). 2. Acute kidney injury. 3. Alcohol abuse. 4. Chronic bronchitis. 5. Hypertension, newly diagnosed. 6. Obesity. DISCHARGE MEDICATIONS: - Levemir FlexPen 20 units subcutaneously twice a day - lisinopril 10 mg by mouth daily - metformin 500 mg by mouth twice a day - Spiriva one inhalation daily - albuterol two-puff inhalation four times a day as needed for shortness of breath - guaifenesin dextromethorphan syrup 10 mL by mouth as needed for cough - Pepto-Bismol 30 mL by mouth as needed for diarrhea HOSPITAL COURSE: This is a 56-year-old male, presented to the hospital with increasing shortness of breath, as well as unable to take anything by mouth, dry heaves, extreme fatigue, tiredness, and extreme thirst for the past 2 weeks. Patient was found to have severe hyperglycemia with acidosis and patient was diagnosed with DKA and admitted to intensive care unit (ICU). The patient was treated with insulin infusion and intravenous (IV) fluids. Patient's symptoms improved, however, he still continued to complain of shortness of breath. Patient is a chronic smoker and noted to have diffuse wheezing. Patient was started on nebulizer treatments, which improved his symptoms. Subsequently, patient was changed to Spiriva and albuterol. His shortness of breath did improve. Initially, he was on oxygen; however, he was successfully weaned off oxygen and then he did not have any hypoxia at rest or on exercise. Because of his typical body habitus and concern for obstructive sleep apnea (LUCRECIA), nocturnal pulse oximetry has been done, which result is still pending. Also, patient had an echocardiogram done in the hospital. The result is still not available. Patient was successfully transitioned from IV to subcutaneous insulin. Patient had insulin teaching done by the nurses and he was able to perform well independently. Patient's blood pressure during the hospitalization was noted to have several spikes with mostly ranging around close to 140s and 150s, so the patient was started on lisinopril. On the day of discharge, patient did not have any complaints. His vital signs were stable. He was functionally at his baseline. PHYSICAL EXAMINATION: VITAL SIGNS: Temperature 97.7, pulse 87, respiratory rate 22, blood pressure 139/78, pulse oximetry 96% in room air. GENERAL: Patient awake, alert, oriented times three, sitting up in bed in no acute distress. HEENT: Normocephalic, atraumatic. Moist mucous membranes. Anicteric eyes. CHEST: Few rhonchi, otherwise good air entry and clear to auscultation. CARDIOVASCULAR: S1, S2 regular. No rub, murmur or gallop. ABDOMEN: Obese, soft, nontender, bowel sounds present. EXTREMITIES: No edema. LABORATORY DATA: WBC 8.6, hemoglobin 13.8, platelets 302. Sodium 139, potassium 4, chloride 107, bicarbonate 26, BUN 19, creatinine 0.8, glucose 241, calcium 8.3, phosphorus 2.5, magnesium 2.4. Patient's A1c 11.7. Liver function tests are normal. Blood culture negative after 72 hours. Urine culture negative. Lung VQ scan negative ventilation scan with no evidence of pulmonary embolism. Chest CT did not show any infiltrate or effusions or mass. There was a 6.4 cm left renal cyst. DISPOSITION: Patient is discharged home in a stable condition. DISCHARGE INSTRUCTIONS: Patient to followup with new primary care provider within a week. Carbohydrate consistent diet. Activity as tolerated.
== END 2016-09-25 10:50 | disposition home or self-care (01) ==
LOC: EDBD 13:46 → M ED 13:46 → M ED INP 18:27 → M ICU 20:47 → M PED 09-23 14:43
PROVIDERS: ADMIT Internal Medicine; ATTEND Internal Medicine Nephrology
DX: E13.10 Other specified diabetes mellitus with ketoacidosis without coma (principal); N17.0 Acute kidney failure with tubular necrosis; F10.10 Alcohol abuse, uncomplicated; J42 Unspecified chronic bronchitis; E87.1 Hypo-osmolality and hyponatremia; E87.5 Hyperkalemia; D72.829 Elevated white blood cell count, unspecified; R06.02 Shortness of breath; I10 Essential (primary) hypertension; E66.9 Obesity, unspecified; Z79.899 Other long term (current) drug therapy; Z79.4 Long term (current) use of insulin; F17.210 Nicotine dependence, cigarettes, uncomplicated; Z79.51 Long term (current) use of inhaled steroids
CPT/HCPCS: 36415; 71010; 71250; 78582; 80048; 80053; 80076; 81001; 82550; 82553; 82803; 83036; 83735; 83880; 84100; 85025; 87040; 87086; 93005; 93041; 94640; 94762; 96361; 96365; 96372; 96375; 99285; A9540; A9567; J2930

== ENCOUNTER → 2017-03-18 | Outpatient (REF) | payer BC ==
[2017-03-18 12:03] LABS: ESTIMATED AVERAGE GLUCOSE 146 MG/DL (60-110); HEMOGLOBIN A1c 6.7 %
[2017-03-18 12:23] LABS: CREATININE, URINE 92.5 MG/DL; MALB URINE SIEMENS 18.5 MG/L
[2017-03-18 12:42] LABS: ALBUMIN 3.6 GM/DL (3.2-5.2); ALBUMIN/GLOBULIN RATIO 0.97 (1.00-1.93); ALKALINE PHOSPHATASE 64 U/L (45-117); ALT/SGPT 24 U/L (12-78); ANION GAP 9 MEQ/L (8-16); AST/SGOT 14 U/L (7-37); BILIRUBIN,TOTAL 0.6 MG/DL (0.2-1.0); BLOOD UREA NITROGEN 15 MG/DL (7-18); CALCIUM LEVEL 9.3 MG/DL (8.5-10.1); CARBON DIOXIDE LEVEL 26 MEQ/L (21-32); CHLORIDE LEVEL 104 MEQ/L (98-107); CHOLESTEROL LEVEL 226 MG/DL (<200); CHOLESTEROL RISK RATIO 3.645 (<5); CREATININE FOR GFR 0.75 MG/DL (0.70-1.30); GLOMERULAR FILTRATION RATE > 60.0 (>56); GLUCOSE, FASTING 127 MG/DL (70-105); HDL CHOLESTEROL 62 MG/DL (>40); LDL CHOLESTEROL 136.2 MG/DL (<100); NON-HDL-C 164 MG/DL; POTASSIUM SERUM 4.3 MEQ/L (3.5-5.1); SODIUM LEVEL 139 MEQ/L (136-145); TOTAL PROTEIN 7.3 GM/DL (6.4-8.2); TRIGLYCERIDES LEVEL 139 MG/DL (<150)
== END ==
LOC: M SFHCCLAY 09:22
DX: E10.9 Type 1 diabetes mellitus without complications (principal)
CPT/HCPCS: 80053

== ENCOUNTER → 2017-07-31 | Outpatient (REF) | payer BC ==
[2017-07-31 12:06] LABS: ALBUMIN/GLOBULIN RATIO 1.08 (1.00-1.93); ALKALINE PHOSPHATASE 101 U/L (45-117); ALT/SGPT 33 U/L (12-78); ANION GAP 7 MEQ/L (8-16); AST/SGOT 14 U/L (7-37); BILIRUBIN,TOTAL 0.4 MG/DL (0.2-1.0); BLOOD UREA NITROGEN 17 MG/DL (7-18); CALCIUM LEVEL 9.4 MG/DL (8.5-10.1); CARBON DIOXIDE LEVEL 27 MEQ/L (21-32); CHLORIDE LEVEL 109 MEQ/L (98-107); CHOLESTEROL LEVEL 241 MG/DL (<200); CHOLESTEROL RISK RATIO 4.462 (<5); CREATININE FOR GFR 0.98 MG/DL (0.70-1.30); GLOMERULAR FILTRATION RATE > 60.0 (>56); GLUCOSE, FASTING 90 MG/DL (70-100); HDL CHOLESTEROL 54 MG/DL (>40); LDL CHOLESTEROL 155.2 MG/DL (<100); NON-HDL-C 187 MG/DL; POTASSIUM SERUM 4.2 MEQ/L (3.5-5.1); SODIUM LEVEL 143 MEQ/L (136-145); TOTAL PROTEIN 7.7 GM/DL (6.4-8.2); TRIGLYCERIDES LEVEL 159 MG/DL (<150)
[2017-07-31 13:45] LABS: ESTIMATED AVERAGE GLUCOSE 154 MG/DL (60-110)
== END ==
LOC: M SFHCCLAY 08:44
DX: E10.9 Type 1 diabetes mellitus without complications (principal); E78.00 Pure hypercholesterolemia, unspecified
CPT/HCPCS: 80053

== ENCOUNTER → 2017-09-18 | Outpatient (REF) | payer BC ==
[2017-09-18 17:44] LABS: ALT/SGPT 40 U/L (12-78); ANION GAP 7 MEQ/L (8-16); BLOOD UREA NITROGEN 21 MG/DL (7-18); CALCIUM LEVEL 9.5 MG/DL (8.5-10.1); CARBON DIOXIDE LEVEL 28 MEQ/L (21-32); CHLORIDE LEVEL 108 MEQ/L (98-107); CHOLESTEROL LEVEL 166 MG/DL (<200); CHOLESTEROL RISK RATIO 2.677 (<5); CREATININE FOR GFR 0.88 MG/DL (0.70-1.30); GLOMERULAR FILTRATION RATE > 60.0 (>56); GLUCOSE, FASTING 110 MG/DL (70-100); HDL CHOLESTEROL 62 MG/DL (>40); LDL CHOLESTEROL 67.2 MG/DL (<100); NON-HDL-C 104 MG/DL; POTASSIUM SERUM 4.3 MEQ/L (3.5-5.1); SODIUM LEVEL 143 MEQ/L (136-145); TRIGLYCERIDES LEVEL 184 MG/DL (<150)
[2017-09-18 17:49] LABS: ESTIMATED AVERAGE GLUCOSE 157 MG/DL (60-110); HEMOGLOBIN A1c 7.1 %
== END ==
LOC: M SFHCCLAY 10:29
DX: E10.9 Type 1 diabetes mellitus without complications (principal); E78.00 Pure hypercholesterolemia, unspecified
CPT/HCPCS: 84460

== ENCOUNTER → 2017-10-22 | Outpatient (CLI) | payer BC | LOC: M CLY 10:29 | DX: R05 Cough (principal); J44.9 Chronic obstructive pulmonary disease, unspecified | CPT/HCPCS: 94010 ==

== ENCOUNTER → 2017-12-21 | Outpatient (CLI) | payer BC | LOC: M CLY 11:11 | DX: R07.89 Other chest pain (principal); Z87.81 Personal history of (healed) traumatic fracture | CPT/HCPCS: 71101 ==

== ENCOUNTER → 2018-01-28 | Outpatient (CLI) | payer BC | LOC: M RAD 15:38 | DX: J44.9 Chronic obstructive pulmonary disease, unspecified (principal) | CPT/HCPCS: G0297 ==

== ENCOUNTER → 2018-03-06 | Outpatient (CLI) | payer BC ==
[~2018-03-06] MED LIST: ALCOPAD22 XX; BAYEKIT XX; BD L33MI XX; BD P31MI2 XX; CONTMIS XX; GUAISYP5 PO; LEVE1INJ5 SC; LISI10TA4 PO; METF500T13 PO; PEPT262S PO; PROAAER10 INH; TIOT18INH INH
--- NOTE | 2018-03-17 08:33 | SLEEPCENT ---
DATE OF PROCEDURE: 03/06/2018 ORDERED BY: Dr. Gerber Nocturnal polysomnography was performed for evaluation of sleep physiology in this patient with a history of excessive somnolence and nonrestorative sleep who has comorbidities of hypertension and diabetes. 7 hours and 30 minutes of data were reviewed. There were 281 minutes of sleep identified. Sleep latency was normal at 9.5 minutes. Rapid eye movement (REM) latency was mildly delayed at 116 minutes. Sleep architecture showed severe fragmentation and poor sleep progression with a reduced sleep efficiency of 63.4%. The patient's electrocardiogram showed a sinus rhythm with an average heart rate of 76 beats per minute. Rate ranged 50-100 beats per minute. Electroencephalogram (EEG) showed some artifact, otherwise normal waveforms for awake and sleep. There were 248 respiratory events identified of 10 seconds in duration or greater for an apnea-hypopnea index of 53.0. The events were primarily obstructive. Only 11 mixed apneas were seen. Respiratory events were not exclusive to sleep stage nor body posture. Arousals from respiratory events occurred 20.1 times per hour and oxygen desaturations were seen into the 80s. Oxygen desaturation index was 22.5. There was some activity in the limb leads, but arousals were few. IMPRESSION: Severe obstructive sleep apnea syndrome (G47.33). Apnea-hypopnea index 53. RECOMMENDATION: The patient should be encouraged to return to the sleep disorder center for pressure therapy. In the interim, alcohol and sedative avoidance should be practiced and caution exercised during the operation of motor vehicles.
== END ==
LOC: M SLEEP 20:00
PROVIDERS: ATTEND Internal Medicine Pulmonary Disease
DX: G47.33 Obstructive sleep apnea (adult) (pediatric) (principal)

== ENCOUNTER → 2018-07-08 | Outpatient (REF) | payer BC ==
[2018-07-08 19:10] LABS: HEMOGLOBIN A1c 8.1 %
[2018-07-08 19:11] LABS: ALBUMIN 3.9 GM/DL (3.2-5.2); ALT/SGPT 45 U/L (12-78); BILIRUBIN,TOTAL 0.5 MG/DL (0.2-1.0); BLOOD UREA NITROGEN 17 MG/DL (7-18); CARBON DIOXIDE LEVEL 28 MEQ/L (21-32); CHLORIDE LEVEL 107 MEQ/L (98-107); CREATININE FOR GFR 0.89 MG/DL (0.70-1.30); GLOMERULAR FILTRATION RATE > 60.0 (>56); GLUCOSE, FASTING 108 MG/DL (70-100); POTASSIUM SERUM 4.2 MEQ/L (3.5-5.1); SODIUM LEVEL 142 MEQ/L (136-145); TOTAL PROTEIN 7.4 GM/DL (6.4-8.2)
== END ==
LOC: M SFHCCLAY 11:01
PROVIDERS: ATTEND Family Medicine
DX: E10.9 Type 1 diabetes mellitus without complications (principal)

== ENCOUNTER → 2018-07-09 | Outpatient (CLI) | payer BC ==
[2018-07-09 14:16] LABS: BASO % 0.5 % (0.0-1.0); EOS # 0.2 10^3/uL (0.0-0.50); EOS % 3.1 % (0.0-3.0); HEMATOCRIT 42.6 % (42.0-52.0); LYMPH % 16.3 % (24.0-44.0); MEAN CORPUSCULAR HEMOGLOBIN 29.1 pg (27.0-33.0); MEAN CORPUSCULAR HGB CONC 32.9 g/dl (32.0-36.5); MEAN CORPUSCULAR VOLUME 88.6 fl (80.0-96.0); MONO # 0.6 10^3/uL (0.0-0.8); MONO % 9.4 % (0.0-5.0); NEUTROPHILS # 4.1 10^3/uL (1.8-7.7); NEUTROPHILS % 70.2 % (36.0-66.0); PLATELET COUNT, AUTOMATED 326 10^3/uL (150-450); RED BLOOD COUNT 4.81 10^6/uL (4.30-6.10); WHITE BLOOD COUNT 5.8 10^3/uL (4.0-10.0)
== END ==
LOC: M SMT 11:52
PROVIDERS: ATTEND Internal Medicine Pulmonary Disease
DX: G47.33 Obstructive sleep apnea (adult) (pediatric) (principal)

== ENCOUNTER → 2018-10-19 | Outpatient (REF) | payer BC ==
[~2018-10-19] MED LIST changes: +BAYE1MIS XX; -BAYEKIT XX
[2018-10-19 13:08] LABS: BLOOD UREA NITROGEN 15 MG/DL (7-18); CARBON DIOXIDE LEVEL 25 MEQ/L (21-32); CHLORIDE LEVEL 110 MEQ/L (98-107); CREATININE FOR GFR 0.82 MG/DL (0.70-1.30); GLOMERULAR FILTRATION RATE > 60.0 (>56); GLUCOSE, FASTING 112 MG/DL (70-100); POTASSIUM SERUM 3.9 MEQ/L (3.5-5.1); SODIUM LEVEL 142 MEQ/L (136-145)
[2018-10-19 13:20] LABS: HEMOGLOBIN A1c 8.6 %
== END ==
LOC: M SFHCCLAY 08:48
PROVIDERS: ATTEND Family Medicine
DX: E10.9 Type 1 diabetes mellitus without complications (principal)